=== PATIENT | male | born 1950 | race Caucasian/White ===

== ENCOUNTER 2017-09-14 21:54 | Emergency (ER) | payer OTHER ==
[2017-09-14] MEDS ORDERED: IPRATROPIUM BROM 0.5MG/2.5ML ONE (22:16)
[2017-09-14] MEDS ORDERED: ALBUTEROL 2.5 MG/3 ML NEB SOL ONE (22:16)
[2017-09-14] MEDS ORDERED: METHYLPREDNISOLONE 125 MG INJ ONE (22:27)
[2017-09-14] MEDS ORDERED: NA CHLORIDE 0.9% 1,000 ML ONE (22:28)
[2017-09-14] MEDS ORDERED: NA CHLORIDE 0.9% 100 ML IV ONE (22:28)
[2017-09-14] MEDS ORDERED: CEFEPIME 2 GM VIAL ONE (22:28)
[2017-09-14] MEDS ORDERED: Levofloxacin500mg IV 0 MG/0 ML BAG IV ONE (22:28)
--- NOTE | 2017-09-14 22:35 | ER ---
Nurse's Notes [facility] Name: Miguel Schofield Age: 66 yrs Sex: Male : 1950 Arrival Date: 09/14/2017 Time: 21:55 Bed 2 Private MD: Diagnosis: Dyspnea;Cough;Hypoxemia;Elevated white blood cell count Presentation: 09/14 22:00 Presenting complaint: Patient states: Respiratory distress that started suddenly 15 min aj [employer]. Patient is retracting in distress, skin is diaphoretic. Patient is able to speak and reports that he believes his pulmonary stent, placed 3 weeks ago, is obsrtucted. Transition of care: patient was not received from another setting of care. Onset of symptoms was September 14, 2017. Initial Sepsis Screen: Does the patient meet any 2 criteria? No. Patient's initial sepsis screen is negative. Does the patient have a suspected source of infection? No. Patient's initial sepsis screen is negative. Care prior to arrival: None. 22:00 Method Of Arrival: Wheelchair aj 22:00 Acuity: JABIER 2 aj Triage Assessment: 22:05 General: Appears in no apparent distress. uncomfortable, Behavior is anxious. Pain: fc Denies pain. Neuro: Level of Consciousness is awake, alert, obeys commands, Oriented to person, place, time, situation. Respiratory: Reports shortness of breath labored breathing Airway is compromised Trachea midline Respiratory effort is labored, gasping, with retractions, using tripod position, Respiratory pattern is tachypnea Onset: The symptoms/episode began/occurred just prior to arrival, the patient has severe shortness of breath. Derm: Skin is healthy with good turgor, Skin is diaphoretic, Skin is normal. Historical: - Allergies: 22:05 Latex, Natural Rubber; fc - Home Meds: 22:05 Albuterol Inhl [Active]; ipratropium bromide inhalation inhalation [Active]; fc - PMHx: 22:05 colon cancer; lung cancer; fc - PSHx: 22:05 pulmonary stent; fc - Immunization history:: Adult Immunizations up to date. - Social history:: Smoking status: Patient/guardian denies using tobacco. - Family history:: not pertinent. Screenin:10 Abuse screen: Denies threats or abuse. Nutritional screening: No deficits noted. tl2 Tuberculosis screening: No symptoms or risk factors identified. Fall Risk Assessment: 22:10 General: Appears distressed, uncomfortable, Behavior is cooperative, appropriate for tl2 age, anxious. Pain: Denies pain. Cardiovascular: Denies chest pain, Heart tones S1 S2 present. Respiratory: Airway is patent Respiratory effort is labored, using tripod position, Respiratory pattern is symmetrical, tachypnea Stridor noted Breath sounds with wheezes bilaterally. Respiratory: Onset: The symptoms/episode began/occurred just prior to arrival, the patient has severe shortness of breath. GI: No signs and/or symptoms were reported involving the gastrointestinal system. : No signs and/or symptoms were reported regarding the genitourinary system. Derm: Skin is clammy, Skin is normal, Skin temperature is cool. 22:40 Reassessment: Patient appears in no apparent distress at this time. Patient and/or tl2 family updated on plan of care and expected duration. Pain level reassessed. Patient states feeling better. Patient states symptoms have improved. Respiratory: Airway is patent Respiratory effort is even, labored, Respiratory pattern is symmetrical, Breath sounds with rhonchi in right upper lobe and left upper lobe Breath sounds with wheezes bilaterally. 22:53 Reassessment: [facility] initiated. tl2 23:48 Reassessment: Pt stated that he has changed his mind and would like to go home. Pt tl2 states he feels better and that they won't [facility] anything different [facility] the [facility]. Pt verbalized understanding of the risks of leaving AMA. MD notified and form signed. Vital Signs: 22:05 BP 156 / 96; Pulse 93; Resp 38; Temp 98.6; Pulse Ox 91% on 2 lpm NC; Weight 92.53 kg; fc Height 6 ft. 0 in. (182.88 cm); Pain 0/10; 22:40 BP 125 / 93; Pulse 91; Resp 22; Pulse Ox 100% on Nebulizer Mask; tl2 23:03 BP 112 / 61; Pulse 86; Resp 22; Pulse Ox 98% on 4 lpm NC; tl2 23:48 BP 91 / 68; Pulse 79; Resp 20; Pulse Ox 99% on 4 lpm NC; tl2 22:05 Body Mass Index 27.67 (92.53 kg, 182.88 cm) ED Course: 21:55 Patient arrived in ED. es 22:03 Triage completed. aj 22:05 Arm band placed on left wrist. Patient placed in an exam room, on a stretcher. fc 22:06 Cm Harvey MD is Attending Physician. nelson 22:06 Inserted saline lock: 20 gauge in right antecubital area, using aseptic technique. tl2 Blood collected. 22:10 Patient has correct armband on for positive identification. Bed in low position. Call tl2 light in reach. Side rails up X2. Adult w/ patient. 22:19 EKG done, by ED staff, reviewed by Cm Harvey MD. cb2 22:23 X-ray completed. Portable x-ray completed in exam room. Patient tolerated procedure kp1 well. 22:25 XRAY Chest (1 view) In Process Unspecified. EDMS 22:40 First set of blood cultures drawn. Inserted saline lock: 20 gauge in left antecubital tl2 area, using aseptic technique. Blood collected. 22:53 Katelin Valencia, RN is Primary Nurse. tl2 09/15 00:16 No provider procedures requiring assistance completed. IV discontinued, intact, tl2 bleeding controlled, No redness/swelling at site. Pressure dressing applied. Administered Medications: 09/14 22:16 Drug: Albuterol - atroVENT (3:1) (2.5 mg - 0.5 mg) 3 ml Route: Nebulizer; tl1 09/15 00:17 Follow up: Response: Marked relief of symptoms tl2 09/14 22:35 Drug: NS 0.9% 500 ml Route: IV; Rate: bolus; Site: left antecubital; tl2 23:33 Follow up: IV Status: Completed infusion; IV Intake: 500ml tl2 22:35 Drug: SOLU-Medrol 125 mg Route: IVP; Site: left antecubital; tl2 09/15 00:17 Follow up: Response: No adverse reaction; Marked relief of symptoms tl2 09/14 23:11 Not Given (Patient Refused): levofloxacin 500 mg 100 ml IVPB once over 60 mins tl1 23:11 Not Given (Patient Refused): Cefepime 2 grams IVPB at 200 ml/hr once over 30 mins; (mix tl1 in NS 100 mL) 23:33 Drug: NS 0.9% 1000 ml Route: IV; Rate: 125 ml/hr; Site: left antecubital; tl2 09/15 00:18 Follow up: IV Status: Completed infusion tl2 Intake: 09/14 23:33 IV: 500ml; Total: 500ml. tl2 Outcome: 22:35 ER care complete, transfer ordered by MD. damon 09/15 00:16 AMA AMA form signed tl2 Condition: stable Discharge instructions given to patient, family, Instructed on risks of signing out AMA 00:19 Patient left the ED. tl2 Signatures: Dispatcher [employer] Mesha Bruce RN Cm Childress MD MD cha Salyer, Edna es Chretien, Felicia RN RN Arleen Mcfarlane RN RN tl1 Katelin Valencia RN RN tl2 Landon Saucedo Kathy [facility]
--- NOTE | 2017-09-14 22:35 | EDPHYS ---
Physician Documentation [facility] Name: Miguel Schofield Age: 66 yrs Sex: Male : 1950 Arrival Date: 09/14/2017 Time: 21:55 Bed 2 Private MD: ED Physician Cm Harvey HPI: 09/14 22:11 This 66 yrs old Male presents to ER via Wheelchair with complaints of nelson Breathing Difficulty. 22:11 The patient has shortness of breath at rest, with light activity. Onset: The nelson symptoms/episode began/occurred just prior to arrival. Duration: The symptoms are continuous, and are steadily getting worse. The patient's shortness of breath has no apparent modifying factors. Associated signs and symptoms: Pertinent positives: non-productive cough. Severity of symptoms: At their worst the symptoms were moderate in the emergency department the symptoms are unchanged. Historical: - Allergies: 22:05 Latex, Natural Rubber; fc - Home Meds: 22:05 Albuterol Inhl [Active]; ipratropium bromide inhalation inhalation [Active]; fc - PMHx: 22:05 colon cancer; lung cancer; fc - PSHx: 22:05 pulmonary stent; fc - Immunization history:: Adult Immunizations up to date. - Social history:: Smoking status: Patient/guardian denies using tobacco. - Family history:: not pertinent. ROS: 22:11 Constitutional: Negative for fever, chills, and weight loss, Eyes: Negative for injury, nelson pain, redness, and discharge, ENT: Negative for injury, pain, and discharge, Neck: Negative for injury, pain, and swelling, Cardiovascular: Negative for chest pain, palpitations, and edema, Abdomen/GI: Negative for abdominal pain, nausea, vomiting, diarrhea, and constipation, Back: Negative for injury and pain, : Negative for injury, bleeding, discharge, and swelling, MS/Extremity: Negative for injury and deformity, Skin: Negative for injury, rash, and discoloration, Neuro: Negative for headache, weakness, numbness, tingling, and seizure, Psych: Negative for depression, anxiety, suicide ideation, homicidal ideation, and hallucinations, Allergy/Immunology: Negative for hives, rash, and allergies, Endocrine: Negative for neck swelling, polydipsia, polyuria, polyphagia, and marked weight changes, Hematologic/Lymphatic: Negative for swollen nodes, abnormal bleeding, and unusual bruising. 22:11 Respiratory: Positive for cough, shortness of breath, wheezing, inspiratory, expiratory. Exam: 22:11 Constitutional: This is a well developed, well nourished patient who is awake, alert, nelson and in no acute distress. Head/Face: Normocephalic, atraumatic. Eyes: Pupils equal round and reactive to light, extra-ocular motions intact. Lids and lashes normal. Conjunctiva and sclera are non-icteric and not injected. Cornea within normal limits. Periorbital areas with no swelling, redness, or edema. ENT: Nares patent. No nasal discharge, no septal abnormalities noted. Tympanic membranes are normal and external auditory canals are clear. Oropharynx with no redness, swelling, or masses, exudates, or evidence of obstruction, uvula midline. Mucous membranes moist. Neck: Trachea midline, no thyromegaly or masses palpated, and no cervical lymphadenopathy. Supple, full range of motion without nuchal rigidity, or vertebral point tenderness. No Meningismus. Chest/axilla: Normal chest wall appearance and motion. Nontender with no deformity. No lesions are appreciated. Cardiovascular: Regular rate and rhythm with a normal S1 and S2. No gallops, murmurs, or rubs. Normal PMI, no JVD. No pulse deficits. Abdomen/GI: Soft, non-tender, with normal bowel sounds. No distension or tympany. No guarding or rebound. No evidence of tenderness throughout. Back: No spinal tenderness. No costovertebral tenderness. Full range of motion. Male : Normal genitalia with no discharge or lesions. Skin: Warm, dry with normal turgor. Normal color with no rashes, no lesions, and no evidence of cellulitis. MS/ Extremity: Pulses equal, no cyanosis. Neurovascular intact. Full, normal range of motion. Neuro: Awake and alert, GCS 15, oriented to person, place, time, and situation. Cranial nerves II-XII grossly intact. Motor strength 5/5 in all extremities. Sensory grossly intact. Cerebellar exam normal. Normal gait. Psych: Awake, alert, with orientation to person, place and time. Behavior, mood, and affect are within normal limits. 22:11 Respiratory: mild respiratory distress is noted, moderate respiratory distress is noted, Respirations: labored breathing, that is mild, that is moderate, Breath sounds: decreased breath sounds, rhonchi, wheezing: expiratory Respiratory rate: 38 Vital Signs: 22:05 BP 156 / 96; Pulse 93; Resp 38; Temp 98.6; Pulse Ox 91% on 2 lpm NC; Weight 92.53 kg; fc Height 6 ft. 0 in. (182.88 cm); Pain 0/10; 22:40 BP 125 / 93; Pulse 91; Resp 22; Pulse Ox 100% on Nebulizer Mask; tl2 23:03 BP 112 / 61; Pulse 86; Resp 22; Pulse Ox 98% on 4 lpm NC; tl2 23:48 BP 91 / 68; Pulse 79; Resp 20; Pulse Ox 99% on 4 lpm NC; tl2 22:05 Body Mass Index 27.67 (92.53 kg, 182.88 cm) fc MDM: 22:06 Patient medically screened. [facility] 22:14 Data reviewed: vital signs, nurses notes, lab test result(s), EKG, radiologic studies, nelson plain films. 09/14 22:11 Order name: Basic Metabolic Panel; Complete Time: 23:14 [facility] 09/14 22:11 Order name: BNP; Complete Time: 23:14 [facility] 09/14 22:11 Order name: CBC with Diff; Complete Time: 23:14 [facility] 09/14 22:11 Order name: Ckmb; Complete Time: 23:14 [facility] 09/14 22:11 Order name: CPK; Complete Time: 23:14 [facility] 09/14 22:11 Order name: LFT's; Complete Time: 23:14 [facility] 09/14 22:11 Order name: Magnesium; Complete Time: 23:14 [facility] 09/14 22:11 Order name: PT-INR; Complete Time: 23:14 [facility] 09/14 22:11 Order name: Ptt, Activated; Complete Time: 23:14 [facility] 09/14 22:11 Order name: Troponin (emerg Dept Use Only); Complete Time: 23:14 [facility] 09/14 22:11 Order name: XRAY Chest (1 view) [facility] 09/14 22:11 Order name: Lipase; Complete Time: 23:14 [facility] 09/14 22:11 Order name: BIPAP [facility] 09/14 22:11 Order name: Blood Culture Adult (2) [facility] 09/14 22:11 Order name: EKG; Complete Time: 22:12 [facility] 09/14 22:11 Order name: Cardiac monitoring; Complete Time: 22:39 [facility] 09/14 22:11 Order name: EKG - Nurse/Tech; Complete Time: 22:39 [facility] 09/14 22:11 Order name: IV Saline Lock; Complete Time: 22:40 [facility] 09/14 22:11 Order name: Labs collected and sent; Complete Time: 22:40 [facility] 09/14 22:11 Order name: O2 Per Protocol; Complete Time: :40 [facility] 09/14 22:11 Order name: O2 Sat Monitoring; Complete Time: 22:40 [facility] Administered Medications: 22:16 Drug: Albuterol - atroVENT (3:1) (2.5 mg - 0.5 mg) 3 ml Route: Nebulizer; tl1 09/15 00:17 Follow up: Response: Marked relief of symptoms tl2 09/14 22:35 Drug: NS 0.9% 500 ml Route: IV; Rate: bolus; Site: left antecubital; tl2 23:33 Follow up: IV Status: Completed infusion; IV Intake: 500ml tl2 22:35 Drug: SOLU-Medrol 125 mg Route: IVP; Site: left antecubital; tl2 09/15 00:17 Follow up: Response: No adverse reaction; Marked relief of symptoms tl2 09/14 23:11 Not Given (Patient Refused): levofloxacin 500 mg 100 ml IVPB once over 60 mins tl1 23:11 Not Given (Patient Refused): Cefepime 2 grams IVPB at 200 ml/hr once over 30 mins; (mix tl1 in NS 100 mL) 23:33 Drug: NS 0.9% 1000 ml Route: IV; Rate: 125 ml/hr; Site: left antecubital; tl2 09/15 00:18 Follow up: IV Status: Completed infusion tl2 Disposition: 09/14/17 23:59 Patient has left against medical advice. Impression: Dyspnea, Cough, Hypoxemia, Elevated white blood cell count. - Patients states they are going to Home. - Condition is Undetermined. Follow up: Private Physician; When: Upon discharge from the Emergency Department; Reason: Recheck today's complaints, Continuance of care, Re-evaluation by your physician. - Problem is new. - Symptoms have improved. Signatures: Dispatcher [employer] Cm Mora MD MD cha Chretien, Felicia, RN RN fc Arleen Velarde, RN RN tl1 Katelin Valencia, RN RN tl2
[2017-09-14 22:46] LABS: Absolute Monocytes 1.8 K/uL (0.1-1.3); Basophils % 0.4 % (0-1.3); Eosinophils % 1.5 % (0-4.4); Lymphocytes % 16.5 % (15.3-44.8); MCH 25.6 pg (27.0-35.0); MCV 82.7 fL (80-100); MPV 8.7 fL (7.6-11.3); RBC Red Blood Cell Count 4.23 M/uL (4.33-5.43)
[2017-09-14 22:49] LABS: Protime INR 1.15
[2017-09-14 22:58] LABS: Potassium 3.7 mEq/L (3.6-5.0)
[2017-09-14 23:04] LABS: Albumin 3.5 g/dL (3.2-5.5); Bilirubin Direct 0.1 mg/dL (0-0.2); Bilirubin Total 0.8 mg/dL (0.3-1.2); Magnesium 1.8 mg/dL (1.8-2.5); Protein, Total 7.4 g/dL (6.0-8.3)
[2017-09-14 23:07] LABS: CKMB Creatine Kinase MB 1.2 ng/ml (0.3-4.0)
--- NOTE | 2017-09-15 07:15 | EKG ---
Test Date: 2017-09-14 Test Time: 22:15:52 Carpenter/Labor: CJ MEASUREMENT RESULTS: Intervals: Rate: 98 LA: 156 QRSD: 90 QT: 372 QTc: 474 [place]: P: 13 LA: 156 QRS: 12 T: 45 INTERPRETIVE STATEMENTS: Sinus rhythm with occasional premature ventricular complexes Nonspecific ST abnormality Abnormal ECG No previous ECG available for comparison Electronically Signed On 09-15-17 07:14:55 CDT by Quincy Chilel
--- NOTE | 2017-09-15 08:34 | RAD REPORT ---
EXAM DESCRIPTION: [place] Single View09/14/2017 10:25 pm CLINICAL HISTORY: Cough COMPARISON: none FINDINGS: An opacity is present within the right lung base with volume loss. An 8 millimeter nodular opacity overlies the left lung base. The heart is normal size IMPRESSION: Right basilar opacity may represent pneumonia or a mass. Further evaluation with CT may be helpful. Right lung volume loss could represent atelectasis or postsurgical change. 8 millimeter nodular opacity within the left base may represent a pulmonary nodule or nipple shadow.
== END 2017-09-15 00:19 | disposition left against medical advice (07) ==
LOC: ER 21:54
DX: R06.00 Dyspnea, unspecified (principal); R05 Cough; R09.02 Hypoxemia; D72.829 Elevated white blood cell count, unspecified; Z91.040 Latex allergy status; Z85.118 Personal history of other malignant neoplasm of bronchus and lung
CPT/HCPCS: 36415; 71045; 80048; 80076; 82550; 82553; 83690; 83735; 83880; 84484; 85025; 85610; 85730; 87040 ×2; 93005; 94640; 96361; 96374; 99284; J2930; J7030; J0692